=== PATIENT | male | born 1960 | race Caucasian/White ===

== ENCOUNTER 2018-05-19 21:12 | Emergency (ER) | payer OTHER, MEDICAID ==
[2018-05-19 21:23] VITALS: BP 113/85
--- NOTE | 2018-05-19 21:37 | EDPHY ---
H & P Time Seen by Provider: 05/19/18 21:34 HPI/ROS: CHIEF COMPLAINT: Earache HISTORY OF PRESENT ILLNESS: The patient is a 57-year-old male who presents emergency department left earache. His symptoms started this morning when he woke up. He felt as though there was fluid in his ear when he rolled over. He has had no discharge. No hearing loss. Patient denies sore throat. No fevers or chills. No cough or shortness of breath. REVIEW OF SYSTEMS: 10 systems were reveiwed and are negative with the exception of the elements mentioned in the history of present illness. Past Medical/Surgical History: Patient had ear infections as a child. Patient gets recurrent sinus infections. Smoking Status: Never smoked Physical Exam: Vitals noted General Appearance: Alert and no distress. Head: [Pupils equal. Patient's left TM is retracted. There is no perforation. No visible fluid collection. No erythema. The right TM appears normal but is partially occluded by wax. Neck: Supple. No lymphadenopathy Respiratory: No respiratory distress. Clear to auscultation bilaterally Cardiac: regular rate and rhythm. Extremities: Full range of motion, normal appearing. Skin: No rashes or lesions. Neuro: Alert. Normal mood and affect. Constitutional: Initial Vital Signs Heart Rate 71 05/19/18 21:20 Respiratory Rate 16 05/19/18 21:20 Blood Pressure 113/85 H 05/19/18 21:20 O2 Sat (%) 96 05/19/18 21:20 O2 Delivery Mode Room Air Allergies/Adverse Reactions: amoxicillin [Amoxicillin] Allergy (Severe, Verified 11/11/12 21:17) HANDS SWELL diphenhydramine [From Benadryl] Allergy (Verified 05/19/18 21:25) pseudoephedrine [From Sudafed] Allergy (Verified 05/19/18 21:25) Home Medications: Medication Instructions Recorded Fluticasone Nasal [Flonase nasal 2 sprays NASAL DAILY #1 mdi 11/11/12 spray] Pantoprazole Sodium 20 mg PO 11/11/12 clonazePAM [Klonopin] 1.5 mg PO 11/11/12 Azithromycin 250 mg PO DAILY #4 tablet 05/19/18 Depakene 05/19/18 Lamictal 05/19/18 Levothyroxine 05/19/18 Medical Decision Making ED Course/Re-evaluation: In the emergency department I discussed possible etiologies with the patient. I answered all his questions. Patient will be given a prescription of azithromycin. The patient has an allergy to amoxicillin. This will cover for possible otitis media. I gave the patient warnings prior to leaving. He will return with worsening symptoms. Differential Diagnosis: My differential includes but is not limited to otitis media, otitis externa, cerumen impaction, tympanic membrane perforation, viral illness Departure - Departure Disposition: Home, Routine, Self-Care Clinical Impression: Acute otitis media Qualifiers: Otitis media type: unspecified Qualified Code(s): H66.90 - Otitis media, unspecified, unspecified ear Condition: Good Instructions: Ear Infection (ED) Additional Instructions: Take your entire course of antibiotics. Return with increasing pain, discharge , hearing loss, persistent fever or any other concerns. Follow up with her primary care physician. If you are unable to get in contact with your primary care physician you have been given follow-up with the on-call physician. Referrals: Franchesca Nieto MD [Medical Doctor] - 5-7 days, call for appt. Prescriptions: Azithromycin 250 mg PO DAILY #4 tablet
[2018-05-19] MEDS ORDERED: AZITHROMYCIN 250 MG TAB PO ONE (21:42)
== END 2018-05-19 22:42 | disposition home or self-care (01) ==
LOC: CED 21:12
DX: H66.90 Otitis media, unspecified, unspecified ear (principal)